=== PATIENT | female | born 1950 | race African-American/Black ===

== ENCOUNTER 2020-11-12 11:12 | Emergency (ER) | payer OTHER ==
[~2020-11-12] VITALS: Ht 165.1 cm; Wt 59.0 kg
[~2020-11-12 11:12] MED LIST: BP PILL; DIAZEPAM 10 MG10 M1 PO; IBUPROFEN 600600 M1 PO; KEFLEX500 MG PO; LEVAQUIN 500 M500 M1 PO; LISINOPRIL2.5 MG PO; MEDROLDOSEPACK PO; NOHOMEMEDICATIONS; NORCO 5-325 TA1 EACH PO; OXYCODONE HCL10 MG PO; OXYCONTIN10 M1 PO; PERCOCET 5-3251 EACH PO; PERCOCET 7.5-31 EACH PO; ROXICODONE5 MG PO; VENTOLIN HFA 1818 GM INH; ZOFRAN ODT4 MG PO
[2020-11-12 11:19] VITALS: BP 117/82
[2020-11-12] MEDS ORDERED: OXYCODONE HCL10 MG PO (11:19)
[2020-11-12] MEDS ORDERED: DIAZEPAM 10 MG10 M2 PO (11:19)
[2020-11-12] MEDS ORDERED: AMLODIPINE BESY10 MG PO (11:20)
[2020-11-12] MEDS ORDERED: TESSALON PERLE100 MG PO (12:30)
== END 2020-11-12 12:40 | disposition home or self-care (01) ==
LOC: ER 11:12
DX: H83.8X3 Other specified diseases of inner ear, bilateral (principal); Z20.822 Contact with and (suspected) exposure to COVID-19; J06.9 Acute upper respiratory infection, unspecified; Z90.711 Acquired absence of uterus with remaining cervical stump; Z79.899 Other long term (current) drug therapy; Z88.0 Allergy status to penicillin; Z88.6 Allergy status to analgesic agent